=== PATIENT | male | born 1950 | race Caucasian/White ===

== ENCOUNTER 2020-10-02 11:07 | Inpatient (IN) | payer MEDICARE ==
[~2020-10-02] VITALS: Ht 182.9 cm; Wt 136.1 kg
[2020-10-02 11:53] LABS: BASOPHILS % 0.1 % (0.0-1.0); HEMATOCRIT 44.2 % (38.2-49.6); HEMOGLOBIN 14.2 g/dL (14.0-18.0); LYMPHOCYTES % 7.7 % (18.0-39.1); MEAN CORPUSCULAR HEMOGLOBIN 29.6 pg (28-32); MEAN CORPUSCULAR HGB CONC 32.1 g/dL (31-35); MEAN CORPUSCULAR VOLUME 92.1 fL (81-99); MONOCYTES # (AUTO) 1.3 (0.2-0.8); MONOCYTES % 9.7 % (4.4-11.3); NEUTROPHILS # (AUTO) 10.6 (2.1-6.9); PLATELET COUNT 206 x10e3/uL (140-360); RED CELL DISTRIBUTION WIDTH 15.7 % (11.7-14.4)
[2020-10-02] MEDS ORDERED: SODIUM CHLORIDE 0.9% 1000ML 1,000 ML IV STA ×2 (11:57→12:31)
[2020-10-02] MEDS ORDERED: PIPER-TAZ 3.375 GM 50 ML IV ONE (12:00)
[2020-10-02 12:03] LABS: INR 1.49; PROTHROMBIN TIME 18.7 seconds (11.9-14.5)
[2020-10-02 12:04] LABS: PARTIAL THROMBOPLASTIN TIME 30.2 seconds (23.8-35.5)
[2020-10-02 12:11] LABS: ALBUMIN 3.2 g/dL (3.5-5.0); ALBUMIN/GLOBULIN RATIO 0.9 (0.8-2.0); ANION GAP 19.7 mmol/L (8-16); CALCIUM 8.8 mg/dL (8.4-10.2); CREATININE, SERUM 1.37 mg/dL (0.72-1.25); POTASSIUM 4.7 mmol/L (3.5-5.1)
[2020-10-02 12:28] LABS: CREATINE KINASE MB 23.6 ng/mL (0-5.0)
[2020-10-02] MEDS ORDERED: SODIUM CHLORIDE 0.9% 500ML 500 ML IV ONE (12:45)
[2020-10-02] MEDS ORDERED: VANCOMYCIN 1GM/NS 250 ML 250 ML IV ONE (12:45)
[2020-10-02] MEDS ORDERED: SODIUM CHLORIDE 0.9% 50ML 50 ML ONE (12:54)
[2020-10-02] MEDS ORDERED: IOPAMIDOL 370 MG/ML 200 ML INFUS..BTL INJ ONE (12:54)
[2020-10-02] MEDS ORDERED: ONDANSETRON HCL INJ 2MG/ML 2ML 2 MG/ML VIAL IV PRN (14:15)
[2020-10-02] MEDS ORDERED: HEPARIN 25,000 UNIT 1,400 UNIT in DEXTROSE 5% 250ML 250 ML IV SCH (14:30)
[2020-10-02] MEDS ORDERED: HEPARIN SOD (PORCINE) 5,000 UNIT/ML VIAL IV ONE ×2 (14:30→16:30)
[2020-10-02] MEDS ORDERED: BACLOFEN20 MG (15:09)
[2020-10-02] MEDS ORDERED: FLOMAX0.4 MG (15:09)
[2020-10-02] MEDS ORDERED: GABAPENTIN600 MG (15:09)
[2020-10-02] MEDS ORDERED: TYLENOL # 31 EA (15:09)
[2020-10-02] MEDS ORDERED: LEVOTHYROXINE50 MCG (15:09)
[2020-10-02] MEDS ORDERED: METFORMIN HCL1000 MG (15:09)
[2020-10-02] MEDS ORDERED: CARVEDILOL12.5 MG (15:09)
[2020-10-02] MEDS ORDERED: DONEPEZIL HCL10 MG (15:09)
[2020-10-02] MEDS ORDERED: AMLODIPINE BESYL5 MG (15:09)
[2020-10-02] MEDS ORDERED: TRAZODONE HCL150 MG (15:09)
[2020-10-02] MEDS ORDERED: PROAIR HFA INH8.5 GM (15:09)
[2020-10-02] MEDS ORDERED: ATORVASTATIN CA40 MG (15:09)
[2020-10-02] MEDS ORDERED: SPIRIVA18 MCG (15:09)
[2020-10-02] MEDS ORDERED: LISINOPRIL20 MG (15:09)
[2020-10-02] MEDS: HEPARIN 25,000 UNIT 1,000 UNIT in DEXTROSE 5% 250ML 250 ML IV SCH (16:00)
[2020-10-02] MEDS ORDERED: HEPARIN SOD (PORCINE) 5,000 UNIT/ML VIAL ONE (16:04)
[2020-10-02] MEDS ORDERED: HEPARIN 25,000 UNIT DRIP IV ONE (16:05)
[2020-10-02] MEDS ORDERED: HEPARIN 25,000 UNIT 1,200 UNIT in DEXTROSE 5% 250ML 250 ML IV SCH (16:15)
[2020-10-02] MEDS ORDERED: HEPARIN 25,000 UNIT 25,000 UNIT in DEXTROSE 5% 250ML 250 ML IV SCH (16:15)
[2020-10-02] MEDS ORDERED: ALBUTEROL/IPRATROPIUM 3 ML NEB NEB ONE (16:15)
[2020-10-02] MEDS: FLUCONAZOLE 200 MG/100 ML 100 ML IV SCH ×2 (16:53→16:56)
[2020-10-02 17:23] LABS: CLARITY,URINE SL CLOUDY (CLEAR); COLOR,URINE YELLOW (YELLOW); KETONES,URINE NEGATIVE (NEGATIVE); LEUKOCYTE ESTERASE ,URINE SMALL (NEGATIVE); NITRITE,URINE NEGATIVE (NEGATIVE); PROTEIN,URINE DIPSTICK 2+ (NEGATIVE); URINE UROBILINOGEN 1 mg/dL (0.2 - 1)
[2020-10-02 17:35] LABS: AMORPHOUS SEDIMENT,URINE MODERATE (FEW); BACTERIA,URINE FEW /HPF; EPITHELIAL CELLS,URINE RARE /LPF
[2020-10-02] MEDS ORDERED: ACETAMINOPHEN 325 MG TAB PO PRN (18:45)
[2020-10-02 19:07] VITALS: BP 150/72
[2020-10-02] MEDS: ALBUTEROL/IPRATROPIUM 3 ML NEB NEB SCH ×2 (19:25→23:30)
[2020-10-02] MEDS: AMLODIPINE BESYLATE 5 MG TAB PO SCH (21:56)
[2020-10-02] MEDS: RISPERIDONE 0.5 MG TAB PO PRN (22:48)
[2020-10-02] MEDS: PIPER-TAZ 3.375 GM 50 ML IV SCH (22:48)
[2020-10-02 23:21] VITALS: BP 167/93
[2020-10-02] MEDS: ZOLPIDEM TARTRATE 5 MG TAB PO PRN (23:53)
[2020-10-03] VITALS (9 sets, daily range): BP systolic 144–165; BP diastolic 79–93
[2020-10-03] MEDS: ALBUTEROL/IPRATROPIUM 3 ML NEB NEB SCH ×5 (03:00→19:15)
[2020-10-03] MEDS ORDERED: FUROSEMIDE INJ 10 MG/ML 4 ML VIAL IV ONE (03:15)
[2020-10-03 04:58] LABS: BASOPHILS % 0.1 % (0.0-1.0); HEMOGLOBIN 13.4 g/dL (14.0-18.0); LYMPHOCYTES # (AUTO) 1.2 (1.0-3.2); LYMPHOCYTES % 10.8 % (18.0-39.1); MEAN CORPUSCULAR HEMOGLOBIN 29.8 pg (28-32); MEAN CORPUSCULAR HGB CONC 32.7 g/dL (31-35); MEAN CORPUSCULAR VOLUME 91.3 fL (81-99); MONOCYTES % 8.9 % (4.4-11.3); NEUTROPHILS # (AUTO) 8.8 (2.1-6.9); NEUTROPHILS % 79.4 % (38.7-80.0); PLATELET COUNT 184 x10e3/uL (140-360); RED BLOOD COUNT 4.49 x10e6/uL (4.3-5.7)
[2020-10-03 05:10] LABS: INR 1.35; PROTHROMBIN TIME 17.3 seconds (11.9-14.5)
[2020-10-03 05:11] LABS: PARTIAL THROMBOPLASTIN TIME 55.3 seconds (23.8-35.5)
[2020-10-03 05:20] LABS: ALBUMIN 2.9 g/dL (3.5-5.0); ALBUMIN/GLOBULIN RATIO 0.9 (0.8-2.0); ANION GAP 14.7 mmol/L (8-16); CALCIUM 8.3 mg/dL (8.4-10.2); CREATININE, SERUM 1.36 mg/dL (0.72-1.25); POTASSIUM 3.7 mmol/L (3.5-5.1)
[2020-10-03] MEDS: PIPER-TAZ 3.375 GM 50 ML IV SCH ×3 (06:06→21:36)
[2020-10-03] MEDS: FAMOTIDINE 20 MG TAB PO SCH (06:06)
[2020-10-03] MEDS ORDERED: LEVOTHYROXINE SODIUM 50 MCG TAB PO SCH (07:30)
[2020-10-03] MEDS: AMLODIPINE BESYLATE 5 MG TAB PO SCH (08:53)
[2020-10-03] MEDS: FUROSEMIDE INJ 10 MG/ML 4 ML VIAL IV SCH ×2 (08:53→20:32)
[2020-10-03] MEDS ORDERED: AMLODIPINE BESYLATE 5 MG TAB PO SCH (09:00)
[2020-10-03] MEDS: HEPARIN 25,000 UNIT 1,000 UNIT in DEXTROSE 5% 250ML 250 ML IV SCH (14:47)
[2020-10-03] MEDS: FLUCONAZOLE 200 MG/100 ML 100 ML IV SCH (16:43)
[2020-10-03] MEDS ORDERED: SODIUM CHLORIDE 0.9% 250ML 250 ML ONE (20:11)
[2020-10-03] MEDS: ZOLPIDEM TARTRATE 5 MG TAB PO PRN (20:30)
[2020-10-03] MEDS: NICOTINE 21 MG/EA PATCH TOP SCH (20:32)
[2020-10-04] MEDS: ALBUTEROL/IPRATROPIUM 3 ML NEB NEB SCH ×7 (00:30→19:55)
[2020-10-04] MEDS ORDERED: METOPROLOL TARTRATE INJ 1 MG/ML VIAL IV PRN (01:30)
[2020-10-04 04:00] VITALS: BP 148/78
[2020-10-04] MEDS: PIPER-TAZ 3.375 GM 50 ML IV SCH ×3 (05:52→20:45)
[2020-10-04] MEDS: LEVOTHYROXINE SODIUM 50 MCG TAB PO SCH (05:52)
[2020-10-04] MEDS: FAMOTIDINE 20 MG TAB PO SCH (05:52)
[2020-10-04 06:01] LABS: BASOPHILS % 0.1 % (0.0-1.0); EOSINOPHILS % 0.2 % (0.0-6.0); HEMATOCRIT 41.3 % (38.2-49.6); HEMOGLOBIN 13.5 g/dL (14.0-18.0); LYMPHOCYTES # (AUTO) 1.6 (1.0-3.2); LYMPHOCYTES % 16.6 % (18.0-39.1); MEAN CORPUSCULAR HEMOGLOBIN 29.9 pg (28-32); MEAN CORPUSCULAR HGB CONC 32.7 g/dL (31-35); MEAN CORPUSCULAR VOLUME 91.4 fL (81-99); MONOCYTES % 9.7 % (4.4-11.3); NEUTROPHILS # (AUTO) 7.2 (2.1-6.9); NEUTROPHILS % 72.2 % (38.7-80.0); PLATELET COUNT 162 x10e3/uL (140-360); RED BLOOD COUNT 4.52 x10e6/uL (4.3-5.7); RED CELL DISTRIBUTION WIDTH 16.3 % (11.7-14.4)
[2020-10-04 06:40] LABS: ANION GAP 16.2 mmol/L (8-16); CALCIUM 8.1 mg/dL (8.4-10.2); CREATININE, SERUM 1.32 mg/dL (0.72-1.25); POTASSIUM 3.2 mmol/L (3.5-5.1)
[2020-10-04 08:00] VITALS: BP 151/92
[2020-10-04] MEDS: AMLODIPINE BESYLATE 5 MG TAB PO SCH (08:32)
[2020-10-04] MEDS: FUROSEMIDE INJ 10 MG/ML 4 ML VIAL IV SCH ×2 (08:32→20:36)
[2020-10-04] MEDS: NICOTINE 21 MG/EA PATCH TOP SCH (10:19)
[2020-10-04 12:45] VITALS: BP 156/96
[2020-10-04] MEDS: RISPERIDONE 0.5 MG TAB PO PRN ×2 (12:50→20:36)
[2020-10-04] MEDS ORDERED: GADOBENATE DIMEGLUMINE 0 ML IV ONE (13:00)
[2020-10-04] MEDS ORDERED: SODIUM CHLORIDE 0.9% 100 ML ONE (13:00)
[2020-10-04] MEDS: METOPROLOL TARTRATE 25 MG TAB PO SCH ×2 (13:06→20:45)
[2020-10-04] MEDS ORDERED: POTASSIUM CHLORIDE 20 MEQ TAB CR PO NR (13:39)
[2020-10-04] MEDS: HEPARIN 25,000 UNIT 1,000 UNIT in DEXTROSE 5% 250ML 250 ML IV SCH (13:41)
[2020-10-04 16:45] VITALS: BP 134/70
[2020-10-04] MEDS: FLUCONAZOLE 200 MG/100 ML 100 ML IV SCH (17:06)
[2020-10-04] MEDS ORDERED: POTASSIUM CHLORIDE 20 MEQ TAB CR PO ONE (19:00)
[2020-10-04 20:00] VITALS: BP 104/61
[2020-10-04] MEDS: ZOLPIDEM TARTRATE 5 MG TAB PO PRN (20:36)
[2020-10-04 21:09] VITALS: BP 104/61
[2020-10-05] VITALS: BP 131/88
[2020-10-05 04:00] VITALS: BP 137/87
[2020-10-05] MEDS: ALBUTEROL/IPRATROPIUM 3 ML NEB NEB SCH ×6 (04:00→23:00)
[2020-10-05 05:12] LABS: BASOPHILS % 0.2 % (0.0-1.0); EOSINOPHILS # (AUTO) 0.1 (0.0-0.4); EOSINOPHILS % 0.6 % (0.0-6.0); HEMATOCRIT 39.5 % (38.2-49.6); HEMOGLOBIN 12.8 g/dL (14.0-18.0); LYMPHOCYTES # (AUTO) 1.9 (1.0-3.2); LYMPHOCYTES % 21.6 % (18.0-39.1); MEAN CORPUSCULAR HEMOGLOBIN 29.4 pg (28-32); MEAN CORPUSCULAR HGB CONC 32.4 g/dL (31-35); MEAN CORPUSCULAR VOLUME 90.6 fL (81-99); MONOCYTES # (AUTO) 0.8 (0.2-0.8); MONOCYTES % 9.6 % (4.4-11.3); NEUTROPHILS # (AUTO) 5.8 (2.1-6.9); NEUTROPHILS % 66.5 % (38.7-80.0); PLATELET COUNT 139 x10e3/uL (140-360); RED BLOOD COUNT 4.36 x10e6/uL (4.3-5.7)
[2020-10-05 05:38] LABS: ANION GAP 15.6 mmol/L (8-16); CREATININE, SERUM 1.27 mg/dL (0.72-1.25); MAGNESIUM 2.1 MG/DL (1.3-2.1); PHOSPHORUS 3.4 MG/DL (2.3-4.7); POTASSIUM 3.6 mmol/L (3.5-5.1)
[2020-10-05] MEDS: FAMOTIDINE 20 MG TAB PO SCH (05:40)
[2020-10-05] MEDS: LEVOTHYROXINE SODIUM 50 MCG TAB PO SCH (05:40)
[2020-10-05] MEDS: PIPER-TAZ 3.375 GM 50 ML IV SCH ×3 (05:40→23:19)
[2020-10-05] MEDS: METOPROLOL TARTRATE 25 MG TAB PO SCH ×3 (05:40→23:19)
[2020-10-05] MEDS: ACETAMINOPHEN/CODEINE 300MG - 30MG TAB PO PRN (06:42)
[2020-10-05 08:00] VITALS: BP 160/84
[2020-10-05] MEDS: FUROSEMIDE INJ 10 MG/ML 4 ML VIAL IV SCH ×2 (08:20→20:18)
[2020-10-05] MEDS: SPIRONOLACTONE 25 MG TAB PO SCH (08:21)
[2020-10-05] MEDS: AMLODIPINE BESYLATE 5 MG TAB PO SCH (08:21)
[2020-10-05] MEDS: NICOTINE 21 MG/EA PATCH TOP SCH (08:23)
[2020-10-05 09:05] VITALS: BP 160/84
[2020-10-05] MEDS: HEPARIN 25,000 UNIT 1,000 UNIT in DEXTROSE 5% 250ML 250 ML IV SCH (16:11)
[2020-10-05] MEDS: BALSAM PERU/CASTOR OIL 60 GM OINT...G. TP SCH (18:24)
[2020-10-05] MEDS: FLUCONAZOLE 200 MG/100 ML 100 ML IV SCH (18:25)
[2020-10-05 23:41] VITALS: BP 135/84
[2020-10-06] VITALS (7 sets, daily range): BP systolic 121–148; BP diastolic 69–85
[2020-10-06] MEDS: ALBUTEROL/IPRATROPIUM 3 ML NEB NEB SCH ×6 (03:00→22:25)
[2020-10-06] MEDS: PIPER-TAZ 3.375 GM 50 ML IV SCH ×3 (06:33→21:55)
[2020-10-06] MEDS: FAMOTIDINE 20 MG TAB PO SCH (06:34)
[2020-10-06] MEDS: LEVOTHYROXINE SODIUM 50 MCG TAB PO SCH (06:34)
[2020-10-06] MEDS: METOPROLOL TARTRATE 25 MG TAB PO SCH ×3 (06:34→21:55)
[2020-10-06] MEDS: SPIRONOLACTONE 25 MG TAB PO SCH (08:29)
[2020-10-06] MEDS: FUROSEMIDE INJ 10 MG/ML 4 ML VIAL IV SCH ×4 (08:29→21:55)
[2020-10-06] MEDS: NICOTINE 21 MG/EA PATCH TOP SCH (08:29)
[2020-10-06] MEDS: BALSAM PERU/CASTOR OIL 60 GM OINT...G. TP SCH (08:29)
[2020-10-06] MEDS: AMLODIPINE BESYLATE 5 MG TAB PO SCH (08:29)
[2020-10-06 11:10] LABS: BASOPHILS % 0.2 % (0.0-1.0); EOSINOPHILS # (AUTO) 0.1 (0.0-0.4); EOSINOPHILS % 0.8 % (0.0-6.0); HEMATOCRIT 40.5 % (38.2-49.6); LYMPHOCYTES # (AUTO) 1.6 (1.0-3.2); LYMPHOCYTES % 16.9 % (18.0-39.1); MEAN CORPUSCULAR HEMOGLOBIN 29.4 pg (28-32); MEAN CORPUSCULAR HGB CONC 32.1 g/dL (31-35); MEAN CORPUSCULAR VOLUME 91.6 fL (81-99); MONOCYTES # (AUTO) 0.8 (0.2-0.8); MONOCYTES % 8.6 % (4.4-11.3); NEUTROPHILS # (AUTO) 6.7 (2.1-6.9); NEUTROPHILS % 72.4 % (38.7-80.0); PLATELET COUNT 146 x10e3/uL (140-360); RED BLOOD COUNT 4.42 x10e6/uL (4.3-5.7)
[2020-10-06 11:34] LABS: ANION GAP 15.9 mmol/L (8-16); CALCIUM 8.1 mg/dL (8.4-10.2); CREATININE, SERUM 1.23 mg/dL (0.72-1.25); POTASSIUM 3.9 mmol/L (3.5-5.1)
[2020-10-06 11:36] LABS: INR 1.07; PROTHROMBIN TIME 14.4 seconds (11.9-14.5)
[2020-10-06] MEDS: HEPARIN 25,000 UNIT 1,000 UNIT in DEXTROSE 5% 250ML 250 ML IV SCH (16:45)
[2020-10-06] MEDS: FLUCONAZOLE 200 MG/100 ML 100 ML IV SCH (16:57)
[2020-10-06] MEDS ORDERED: SODIUM CHLORIDE 0.9% 250ML 250 ML ONE (17:05)
[2020-10-07] VITALS (7 sets, daily range): BP systolic 132–165; BP diastolic 76–99
[2020-10-07] MEDS: ALBUTEROL/IPRATROPIUM 3 ML NEB NEB SCH ×6 (02:16→23:00)
[2020-10-07] MEDS: ACETAMINOPHEN/CODEINE 300MG - 30MG TAB PO PRN ×2 (02:37→11:09)
[2020-10-07] MEDS: BALSAM PERU/CASTOR OIL 60 GM OINT...G. TP SCH (02:46)
[2020-10-07 05:08] LABS: BASOPHILS % 0.2 % (0.0-1.0); EOSINOPHILS # (AUTO) 0.1 (0.0-0.4); EOSINOPHILS % 0.6 % (0.0-6.0); HEMATOCRIT 39.6 % (38.2-49.6); HEMOGLOBIN 12.8 g/dL (14.0-18.0); LYMPHOCYTES % 17.2 % (18.0-39.1); MEAN CORPUSCULAR HEMOGLOBIN 29.4 pg (28-32); MEAN CORPUSCULAR HGB CONC 32.3 g/dL (31-35); MONOCYTES # (AUTO) 1.1 (0.2-0.8); MONOCYTES % 9.8 % (4.4-11.3); NEUTROPHILS # (AUTO) 8.2 (2.1-6.9); NEUTROPHILS % 71.5 % (38.7-80.0); PLATELET COUNT 140 x10e3/uL (140-360); RED BLOOD COUNT 4.35 x10e6/uL (4.3-5.7); RED CELL DISTRIBUTION WIDTH 17.1 % (11.7-14.4)
[2020-10-07 05:31] LABS: ALBUMIN 2.5 g/dL (3.5-5.0); ALBUMIN/GLOBULIN RATIO 0.7 (0.8-2.0); CALCIUM 8.3 mg/dL (8.4-10.2); CREATININE, SERUM 1.23 mg/dL (0.72-1.25)
[2020-10-07] MEDS: PIPER-TAZ 3.375 GM 50 ML IV SCH ×3 (05:44→22:57)
[2020-10-07] MEDS: LEVOTHYROXINE SODIUM 50 MCG TAB PO SCH (05:44)
[2020-10-07] MEDS: FUROSEMIDE INJ 10 MG/ML 4 ML VIAL IV SCH ×4 (05:44→22:57)
[2020-10-07] MEDS: FAMOTIDINE 20 MG TAB PO SCH (05:44)
[2020-10-07] MEDS: METOPROLOL TARTRATE 25 MG TAB PO SCH ×3 (05:44→22:57)
[2020-10-07] MEDS: SPIRONOLACTONE 25 MG TAB PO SCH (09:33)
[2020-10-07] MEDS: NICOTINE 21 MG/EA PATCH TOP SCH (09:33)
[2020-10-07 11:11] LABS: BODY FLUID APPEARANCE CLOUDY; BODY FLUID COLOR YELLOW; BODY FLUID TYPE PERITONEAL
[2020-10-07 11:12] LABS: RBC,BODY FLUID 676 cells/uL; WBC,BODY FLUID 249 cells/uL
[2020-10-07 11:20] LABS: LYMPHOCYTES,BODY FLUID 34 %; MONO/MACROPHG,BODY FLUID 20 %; NEUTROPHILS,BODY FLUID 46 %
[2020-10-07] MEDS: HEPARIN 25,000 UNIT 1,000 UNIT in DEXTROSE 5% 250ML 250 ML IV SCH (16:59)
[2020-10-07] MEDS ORDERED: FLUCONAZOLE 200 MG/100 ML 100 ML IV SCH (17:00)
[2020-10-08] VITALS (7 sets, daily range): BP systolic 136–170; BP diastolic 77–91
[2020-10-08] MEDS: ALBUTEROL/IPRATROPIUM 3 ML NEB NEB SCH ×4 (03:00→14:37)
[2020-10-08 05:45] LABS: BASOPHILS % 0.4 % (0.0-1.0); EOSINOPHILS # (AUTO) 0.1 (0.0-0.4); HEMATOCRIT 40.1 % (38.2-49.6); HEMOGLOBIN 12.8 g/dL (14.0-18.0); LYMPHOCYTES # (AUTO) 2.1 (1.0-3.2); LYMPHOCYTES % 19.6 % (18.0-39.1); MEAN CORPUSCULAR HEMOGLOBIN 29.6 pg (28-32); MEAN CORPUSCULAR HGB CONC 31.9 g/dL (31-35); MEAN CORPUSCULAR VOLUME 92.6 fL (81-99); MONOCYTES # (AUTO) 1.1 (0.2-0.8); NEUTROPHILS # (AUTO) 7.2 (2.1-6.9); PLATELET COUNT 157 x10e3/uL (140-360); RED BLOOD COUNT 4.33 x10e6/uL (4.3-5.7); RED CELL DISTRIBUTION WIDTH 16.6 % (11.7-14.4)
[2020-10-08 06:13] LABS: ALBUMIN 2.5 g/dL (3.5-5.0); ALBUMIN/GLOBULIN RATIO 0.7 (0.8-2.0); ANION GAP 16.1 mmol/L (8-16); CALCIUM 8.2 mg/dL (8.4-10.2); CREATININE, SERUM 1.29 mg/dL (0.72-1.25); POTASSIUM 4.1 mmol/L (3.5-5.1)
[2020-10-08] MEDS: LEVOTHYROXINE SODIUM 50 MCG TAB PO SCH (06:36)
[2020-10-08] MEDS: METOPROLOL TARTRATE 25 MG TAB PO SCH ×2 (06:36→14:34)
[2020-10-08] MEDS: PIPER-TAZ 3.375 GM 50 ML IV SCH ×2 (06:36→14:52)
[2020-10-08] MEDS: FUROSEMIDE INJ 10 MG/ML 4 ML VIAL IV SCH (06:36)
[2020-10-08] MEDS: FAMOTIDINE 20 MG TAB PO SCH (06:36)
[2020-10-08] MEDS: BALSAM PERU/CASTOR OIL 60 GM OINT...G. TP SCH (08:31)
[2020-10-08] MEDS: NICOTINE 21 MG/EA PATCH TOP SCH (08:34)
[2020-10-08] MEDS: SPIRONOLACTONE 25 MG TAB PO SCH (08:34)
[2020-10-08] MEDS ORDERED: METOLAZONE 5 MG TAB PO SCH (09:00)
[2020-10-08] MEDS ORDERED: FUROSEMIDE 40 MG TAB PO SCH (09:00)
[2020-10-08] MEDS ORDERED: ONDANSETRON HCL 4 MG ORAL DISINTEGRATING TAB PO PRN (12:30)
[2020-10-08] MEDS ORDERED: WARFARIN SOD 5 MG TAB PO SCH (17:00)
[2020-10-08] MEDS ORDERED: SPIRONOLACTONE 25 MG TAB PO SCH (17:00)
== END 2020-10-08 16:11 | DRG 871 ==
LOC: ER 11:20 → ERHOLD 14:41 → IMCU 17:55 → MED/SURG 10-06 16:25
PROVIDERS: ADMIT Internal Medicine; ATTEND Internal Medicine
PROC: 0W9G3ZZ Drainage of Peritoneal Cavity, Percutaneous Approach (ICD-10-PCS; principal; 2020-10-07)
DX: A41.9 Sepsis, unspecified organism (principal); G93.41 Metabolic encephalopathy; I82.220 Acute embolism and thrombosis of inferior vena cava; I50.33 Acute on chronic diastolic (congestive) heart failure; J90 Pleural effusion, not elsewhere classified; M62.82 Rhabdomyolysis; N17.9 Acute kidney failure, unspecified; L03.115 Cellulitis of right lower limb; L03.116 Cellulitis of left lower limb; R18.8 Other ascites; F03.91 Unspecified dementia, unspecified severity, with behavioral disturbance; F05 Delirium due to known physiological condition; I13.0 Hypertensive heart and chronic kidney disease with heart failure and stage 1 through stage 4 chronic kidney disease, or unspecified chronic kidney disease; I48.91 Unspecified atrial fibrillation; K74.60 Unspecified cirrhosis of liver; N50.89 Other specified disorders of the male genital organs; N18.30 Chronic kidney disease, stage 3 unspecified; R65.20 Severe sepsis without septic shock; Z20.828 Contact with and (suspected) exposure to other viral communicable diseases; E11.51 Type 2 diabetes mellitus with diabetic peripheral angiopathy without gangrene; Z86.73 Personal history of transient ischemic attack (TIA), and cerebral infarction without residual deficits; E03.9 Hypothyroidism, unspecified; E78.5 Hyperlipidemia, unspecified; B96.5 Pseudomonas (aeruginosa) (mallei) (pseudomallei) as the cause of diseases classified elsewhere; Z74.09 Other reduced mobility; E87.6 Hypokalemia; I89.0 Lymphedema, not elsewhere classified
CPT/HCPCS: 36415; 49083; 70450; 71045; 74177; 74470; 76770; 76870; 80048; 80053; 81001; 82105; 82140; 82270; 82550; 82553; 82948; 83605; 83735; 83880; 84100; 84484; 85025; 85610; 85730; 87040; 87070; 87071; 87086; 87186; 87205; 88112; 88305; 89051; 93005; 93306; 93925; 93976; 94640; 97139; 99251; 99285; C1729; J1450; J1644; J1940; J2543; J3370; J7030; J7040; J7050; Q9967; U0002